=== PATIENT | female | born 1940 | race Caucasian/White ===

== ENCOUNTER 2022-06-30 16:04 | Emergency (ER) | payer MEDICARE ==
[~2022-06-30] VITALS: Ht 157.5 cm; Wt 81.8 kg
--- NOTE | 2022-06-30 20:05 | NUR ---
CALLED PATIENT BACK FROM [facility] FOR REEVALUATION . PT REPORTS " I FEEL MUCH BETTER " VSS AND CHARTED
[2022-06-30 20:10] VITALS: BP 171/78
[2022-06-30] MEDS ORDERED: BLOO1KIT81 TOP (20:34)
== END 2022-06-30 20:54 | disposition home or self-care (01) ==
LOC: ER 16:04
DX: I10 Essential (primary) hypertension (principal); Z88.2 Allergy status to sulfonamides
CPT/HCPCS: 93005; 99284